=== PATIENT | female | born 1955 | race Caucasian/White ===

== ENCOUNTER 2017-01-08 07:40 | Day surgery (SDC) | payer OTHER ==
[~2017-01-08] VITALS: Ht 167.6 cm; Wt 93.5 kg
[2017-01-08] VITALS (11 sets, daily range): BP systolic 148–164; BP diastolic 66–94; PULSE 65–76; RESP 8–20; O2SAT 90–97
[~2017-01-08 07:40] MED LIST: CeFAZolin Inj 2 GM in IV Premix 1 EACH IV SCH; FLUO10CA20 PO; FLUT16SP NS; METF500T4 PO; OMEP20CA11 PO; PHEN10TA32 PO; PRAV10TA2 PO; PROP10TA8 PO; SOLI5TAB2 PO
[2017-01-08] MEDS ORDERED: Ketamine 10 mg/mL 20 mL Inj ONE (07:41)
[2017-01-08] MEDS ORDERED: Ondansetron 2 mg/mL 2 mL Inj ONE (07:41)
[2017-01-08] MEDS ORDERED: Propofol 10,000 mCg/mL 20 mL Inj ONE (07:41)
[2017-01-08] MEDS ORDERED: EPHEDrine/NS 5 mg/mL 5 mL Syringe ONE (07:41)
[2017-01-08] MEDS ORDERED: Dexamethasone 4 mg/mL Inj ONE (07:41)
[2017-01-08] MEDS ORDERED: HYDROmorphone 2 mg/mL Inj ONE (07:41)
[2017-01-08] MEDS ORDERED: fentaNYL-PF 50 mCg/mL 2 mL Inj ONE (07:41)
[2017-01-08] MEDS: Lactated Ringer's 1,000 ML IV SCH ×2 (07:48→09:48)
--- NOTE | 2017-01-08 09:09 | PCM.HPANE ---
Patient Data Date of Service: Jan 08, 2017 Surgeon Admitting Provider: Attending Provider:Wilber Forrest DO Primary Care Physician:Tim Other Provider:Jose Manuel Deal Anesthesia Reason for Visit Right Wrist Retained Hardware Ht/WT & BMI Height (Feet): 5 Height (Inches): 6 Weight (Kilograms): 93.5 Body Mass Index 33.00 Allergies Coded Allergies: No Known Allergies (Unverified , 01/02/17) Past Anesthesia History Anesthesia History: Denies:: Abnormal Airway (S/P JAW SURGERY), Anesthesia Reactions, Malignant Hyperthermia Diabetes History Hx Diabetes?: Yes Type of Diabetes: Type II Glycemic Control: Oral Medication Current Bedside Blood Glucose: 150 MRSA MRSA: No Medications Home Meds Incl Beta Oanh: Yes (propranolol) Date Beta Oanh Taken: Jan 07, 2017 Time Beta Oanh Taken: 1999 Reported Medications Solifenacin Succinate (Vesicare)5 Mg Tablet5 Mg PO DAILY #30 TABLET 06/30/16 Phenylephrine HCl (Suphedrine PE)10 Mg Acancm86 Mg PO DAILY 06/30/16 Propranolol HCl 10 Mg Szfkwj69 Mg PO DAILY 90 Days Ref 0 06/30/16 Pravastatin 10 Mg Rauqwr22 Mg PO HS Ref 0 06/30/16 Omeprazole 20 Mg Capsule.dr20 Mg PO DAILY Ref 0 06/30/16 Metformin 500 Mg Gxegta684 Mg PO DAILY Ref 0 06/30/16 Fluticasone Propionate (Fluticasone Propionate Nasal)16 Gm [place].susp1 [place] NS BID PRN allergy sx #16 GM Ref 0 06/30/16 Fluoxetine 10 Mg Phcokfy24 Mg PO DAILY Ref 0 06/30/16 Discontinued Reported Medications Hydrocodone-Acetaminophen 5-325 mg 1 Each Tablet1 Tablet PO Q6H PRN For Pain Ref 0 06/30/16 History History of ENT Problems?: Yes HEENT History: Positive for:: Sinus Problem (seasonal allergies) Denies:: Abnormal Airway (S/P JAW SURGERY) Cardiovascular History: Positive for:: Hypertension (HYPERLIPIDEMIA) Denies:: Heart Murmur Other History/Comments HTN Rx with Propanolol Hx of Respiratory Problem?: No Respiratory History: Denies:: Oxygen Administration Use of C-PAP Machine Hx Neurologic Problems?: Yes Hx of GI Problems?: Yes Gastrointestinal History: Positive for:: Gastroesphageal Reflux Heartburn Hx of Problems?: Yes Female Hx: Denies:: Currently (S/P D&C) Skin History: Denies:: History Skin Disorders? Pressure Ulcers Hx Musculoskeletal Problems?: Yes Musculoskeletal History: Positive for:: Musculoskeletal Trauma (S/P ORIF RT DISTAL RADIUS/ULNA & OPEN RT CTR) Other History/Comment s/p ORIF RUE wrist Hx of Psycho/Social Problems?: Yes Psycho Social History: Positive for:: Hx Depression (SLEEP WALKS) Hx Surgeries?: Yes (JAW SURGERY,D&C,ORIF RT DISTAL RADIUS/ULNA & OPEN RT CTR) Hx Any Other Health Problems?: Yes Other History: Denies:: Cancer Endocrine Disease Hospitalization Thyroid Disease History Blood Transfusions: Denies:: Blood Transfusions Hx Diabetes: YesBedside Blood Glucose: 150 Smoking Status: Former Smoker Have You Smoked inLast 12 mo: No Stop/Bang Treated for Sleep Apnea?: No Do You Have a CPAP Machine?: No S-Snoring: Do You Snore Loudly: No T-Tired: feel tired, fatigued: Yes O-Obsered: Observed not breath: No P-Blood Pressure: treated: Yes B- Body Mass Index > 35 kg/m2: No A- Age over 50: Yes N- Neck Large Circumference: No G- Gender Male: No ARABELLA Total Score: 3 ARABELLA Risk Assessment: Low Risk, <3 Yes ARABELLA Category 2: Yes Risk Assessment Category Category 1A: Patient has history of documented sleep apnea, and HAS NOT received any narcotic, sedative or anesthesia administration during this stay. Category 1B: Patient has history of documented sleep apnea, and HAS received any narcotic , sedative or anesthesia administration during this stay Category 2: Patient has SUSPECTED Obstructive Sleep Apnea, and HAS received any narcotic , sedative or anesthesia administration during this stay. Category 3: Patient has SUSPECTED Obstructive Sleep Apnea and HAS NOT received narcotic, sedative or anesthesia administration during this stay. Category 4: Outpatient in Procedural Areas with known sleep apnea or who screen positive for High Risk via the STOP/BANG questionnaire. Exam Exam Vital Signs Vital Signs Date Time Temp Pulse Resp B/P Pulse Ox O2 Delivery O2 Flow Rate FiO2 01/08/17 08:11 36.4 65 18 153/79 97 Room Air General Appearance: Alert, Oriented X3, Cooperative HEENT/AIRWAY: MP 3 (Retrognathic; C-Sp extension WNL; Obtructive post induction , chin lift sufficient) Lungs: Clear to Auscultation, Clear to Percussion Heart: Exam Unremarkable, Normal S1, Normal S2 Meds/Labs/Diagnostics Admission Meds Current Medications Lactated Ringer's (Lr) 1,000 ml @ 120 mls/hr Q8H20M IV Last administered on t 07:48; Start 01/08/17 at 05:00; Stop 01/08/17 at 13:19 Bedside Blood Glucose: 150 Plan Impression Patient chart reviewed, patient interviewed and anesthestic plan with risks, benefits, and alternatives discussed, and informed consent obtained. NPO Status: 01/08/17 water 0430 ASA Physical Status: ASA2 Mod Systemic Disease Anesthetic Plan: GA (LMA as Pt has no c/o GERD DOS, NPO) Bene/Risks/Altern/Consents: Yes HP Complete Prior to Induction: Yes Frankie Dias DO Jan 08, 2017 09:09
[2017-01-08] MEDS ORDERED: Lactated Ringer's 1,000 ML IV SCH (09:13)
[2017-01-08] MEDS ORDERED: Lactated Ringer's 500 ML IV PRN (09:13)
[2017-01-08] MEDS ORDERED: HYDROmorphone 1 mg/mL Inj IVPUSH PRN (09:15)
[2017-01-08] MEDS ORDERED: MetoCLOpramide 5 mg/mL 2 mL Inj IVPUSH PRN (09:15)
[2017-01-08] MEDS ORDERED: fentaNYL-PF 50 mCg/mL 2 mL Inj IVPUSH PRN (09:15)
[2017-01-08] MEDS ORDERED: Atropine 0.4 mg/mL Inj IVPUSH PRN (09:15)
[2017-01-08] MEDS ORDERED: Dexamethasone 4 mg/mL Inj IVPUSH PRN (09:15)
[2017-01-08] MEDS ORDERED: Phenylephrine 10,000 mCg/mL Inj IVPUSH PRN (09:15)
[2017-01-08] MEDS ORDERED: EPHEDrine Sulfate 50 mg/mL Inj IVPUSH PRN (09:15)
[2017-01-08] MEDS ORDERED: Ondansetron 2 mg/mL 2 mL Inj IVPUSH PRN (09:15)
[2017-01-08] MEDS ORDERED: Labetalol 5 mg/mL 4 mL Inj IV PRN (09:15)
[2017-01-08] MEDS ORDERED: Lidocaine 1%-Epi 1:100,000 20 mL Inj NERVEBLOCK ONE (09:46)
--- NOTE | 2017-01-08 10:20 | PCM.ANEP1 ---
Post Anesthesia Phase 1 PACU Phase 1 Assessment Date of Service: Jan 08, 2017 Vital Signs Vital Signs Date Time Temp Pulse Resp B/P Pulse Ox O2 Delivery O2 Flow Rate FiO2 01/08/17 08:11 36.4 65 18 153/79 97 Room Air Anesthetic Administered: GA Level of Alertness: Awake, talking LOVE's with Equal Strength: Yes Pain: No Nausea or Vomiting: No Oxygen Delivery: Simple Mask (6L) Lungs: Clear to Auscultation, Clear to Percussion Dermatome Level: Full Sensation Frankie Dias DO Jan 08, 2017 10:20
[2017-01-08] MEDS ORDERED: HYDROcodone-APAP 7.5-325 mg Tablet PO PRN (10:25)
--- NOTE | 2017-01-08 10:43 | PCM.ANEP2 ---
Post Anesthesia Evaluation ASA/CMS Post Anesthesia Date of Service: Jan 08, 2017 VS in Patient's Normal Range?: Yes Resp Stable; Airway Patent?: Yes CV Function & Hydration Stable: Yes Mental Status Recovered?: Yes Pain control Satisfactory?: Yes N/V Control Satisfactory?: Yes Frankie Dias DO Jan 08, 2017 10:43
--- NOTE | 2017-01-08 23:26 | OP ---
[address] [address] OPERATIVE REPORT PATIENT: JODIE SMITH : 1955 MR#: [id number] ADMIT: 01/08/2017 JOB ID: [id number] DATE OF SURGERY: 01/08/2017 PREOPERATIVE DIAGNOSIS(ES): Right wrist retained hardware. POSTOPERATIVE DIAGNOSIS(ES): Right wrist retained hardware. PROCEDURE: Right wrist removal of deep hardware. SURGEON: Wilber Forrest DO. ANESTHESIA: General. HISTORY: The patient is a pleasant 61-year-old female that sustained a significant injury to her right wrist with a 3+ part intra-articular distal radius fracture, as well as a distal ulnar fracture. She also demonstrated with acute carpal tunnel syndrome. She underwent surgery for fixation of distal radius, ulna, as well as carpal tunnel release. She healed well from the surgery and progressed well with postop rehabilitation with the type of fixation that needed to be utilized, which was a distal volar rim plate from the Synthes set in order to capture the distal fragment for her radius fracture. With this type of hardware, it was discussed previously with the patient that this would have to be removed after her fracture had healed due to the high incidence of tendon irritation to the flexor tendon due to the distal placement of the plate that was necessary. The patient was several months from fixation and we discussed at that time for hardware removal. She understood the risks included, but not limited to, neurovascular injury, tendon injury, infection, stiffness, persistent pain; all of which may require further intervention. The patient had all questions answered. Consent was signed and placed in chart. PROCEDURE IN DETAIL: The patient was brought to the operative suite and placed supine on the operating room table. Surgical time-out performed. Everyone in the room was in agreement. After appropriate anesthesia was obtained, a right upper arm tourniquet was applied and the right extremity was prepped and draped in sterile fashion. Right upper extremity was then exsanguinated and tourniquet inflated to 250 mmHg. The patient's previous incision was then entered. Dissection was carried down to the FCR tendon sheath. The FCR was retracted ulnarly. The sub sheath next was incised. The flexor pollicis longus was identified and retracted ulnarly. The pronator quadratus was further elevated off of the volar distal radius plate. A [place] as well was used to free up the soft tissues from the distal radius plate. Screws were all removed manually, as well as the plate. This was removed without any complication. Copious irrigation was then performed. The fracture was palpated and was found to be completely healed, which was verified under fluoroscopy with multiple views. Further irrigation was performed, followed by closure of the subcutaneous tissues with 4-0 Vicryl and a 4-0 running nylon for the skin. Patient was then placed in a bulky soft dressing and back into her wrist brace. ESTIMATED BLOOD LOSS: Less than 5 cc. COMPLICATIONS: None. DISPOSITION: The patient tolerated the procedure well. Anesthesia was reversed. The patient was transferred back to recovery. SPECIMENS: A [employer]ynthes volar distal radius rim plate with multiple locking and nonlocking screws. POSTOPERATIVE PLAN: The patient will follow up in the office in two weeks. Will remove the patient's sutures at that time and start weaning her from the brace and have her at least start working on range of motion.
== END 2017-01-08 23:59 | disposition home or self-care (01) ==
LOC: SAS 07:40
PROVIDERS: ATTEND Orthopaedic Surgery
DX: T84.84XA Pain due to internal orthopedic prosthetic devices, implants and grafts, initial encounter (principal); S52.571D Other intraarticular fracture of lower end of right radius, subsequent encounter for closed fracture with routine healing; S52.591D Other fractures of lower end of right radius, subsequent encounter for closed fracture with routine healing; E11.9 Type 2 diabetes mellitus without complications; I10 Essential (primary) hypertension; E78.5 Hyperlipidemia, unspecified; J30.2 Other seasonal allergic rhinitis; K21.9 Gastro-esophageal reflux disease without esophagitis; F32.9 Major depressive disorder, single episode, unspecified; Z87.891 Personal history of nicotine dependence; Z79.84 Long term (current) use of oral hypoglycemic drugs
CPT/HCPCS: 20680; 76000; J0690; J1100; J1170; J2250; J2405; J3010; J7120